=== PATIENT | female | born 1965 | race African-American/Black ===

== ENCOUNTER 2019-02-24 09:25 | Inpatient (IN) | payer OTHER ==
[2019-02-24 10:25] VITALS: BMI 37.9
--- NOTE | 2019-02-24 11:09 | HP ---
COWS - Scale Resting Pulse: 0= [place] 80 or Below Sweatin= Chills/Flushing Restless Observation: 0= Sits Still Pupil Size: 0= Normal to Room Light Bone or Joint Aches: 1= Mild Discomfort Runny Nose/ Eye Tearin= Constantly Teary/Runny GI Upset > 30mins: 0= None Tremor Observation: 0= None Yawning Observation: 1= 1-2x During Session Anxiety or Irritability: 2=Irritable/Anxious Goose Flesh Skin: 0=Smooth Skin COWS Score: 9 CIWA Score - Admission Criteria OASAS Guidelines: Admission for Medically Managed Detox: Requires at least one of the followin. CIWA greater than 12 2. Seizures within the past 24 hours 3. Delirium tremens within the past 24 hours 4. Hallucinations within the past 24 hours 5. Acute intervention needed for co occurring medical disorder 6. Acute intervention needed for co occurring psychiatric disorder 7. Severe withdrawal that cannot be handled at a lower level of care (continued vomiting, continued diarrhea, abnormal vital signs) requiring intravenous medication and/or fluids 8. Admission ROS [facility] Allergies/Adverse Reactions: Allergies Allergy/AdvReac Type Severity Reaction Status Date / Time Sulfa (Sulfonamide Allergy Verified 02/24/19 10:09 Antibiotics) History of Present Illness: pt here requesting detox from heroin use , claims 2.5 bags /day x 15 years , never in detox , was in [facility] 3 years ago MDD 60 mg " a long time ago " , on Suboxone 3 years ago , stopped going , relapsed , latest use today , denies OD , denies IVDU . States tried ambulatory detox 1 year ago , non- opioid detox , felt ok until completed then relapsed " I had no energy " . reports she was afraid to detox at [facility] now " I live alone " . cocaine : not daily " once in a blue " tobacco : 8 cigs/day etoh : not daily pMHX : pneumonia w/ PE November 2018 , on [place] , HLD , GERD PSHX : denies PSych : denies SHX : working in a public school. Exam Limitations: No Limitations - Ebola screening Have you traveled outside of the country in the last 21 days: No (N) Have you had contact with anyone from an Ebola affected area: No Do you have a fever: No - Review of Systems Constitutional: No Symptoms Reported EENT: reports: Tearing, Nose Congestion Respiratory: reports: No Symptoms reported Cardiac: reports: No Symptoms Reported GI: reports: Constipated : reports: No Symptoms Reported Musculoskeletal: reports: See HPI, Muscle Pain Integumentary: reports: No Symptoms Reported Neuro: reports: No Symptoms reported Endocrine: reports: See HPI (per pt borderline DM) Psychiatric: reports: Orientated x3, Agitated Patient History - Smoking Cessation Smoking history: Current every day smoker Have you smoked in the past 12 months: Yes Hx Chewing Tobacco Use: No Initiated information on smoking cessation: No - Substances abused Heroin Substance route: Inhalation Frequency: Daily Amount used: 2 BAGS Age of first use: 36 Date of last use: 02/24/19 Cocaine Substance route: Inhalation Frequency: 1-3 times last 30 days Family Disease History - Family Disease History Family History: Denies Admission Physical Exam BHS - Vital Signs Vital Signs: Vital Signs - 24 hr 02/24/19 10:20 Temperature 97.8 F Pulse Rate 65 Respiratory 18 Rate Blood Pressure 139/91 - Physical General Appearance: Yes: No Apparent Distress, Appropriately Dressed HEENTM: Yes: Hearing grossly Normal, Normocephalic, Normal Voice, Nasal Congestion, Rhinorrhea, Other (teary eyes) Respiratory: Yes: Lungs Clear, Normal Breath Sounds, No Respiratory Distress, No Accessory Muscle Use Neck: Yes: No masses,lesions,Nodules, Trachea in good position Cardiology: Yes: Regular Rhythm, Regular Rate, S1, S2 Abdominal: Yes: Non Tender, Soft, Protuberent Musculoskeletal: Yes: Gait Steady Extremities: Yes: Normal Range of Motion, Non-Tender Neurological: Yes: Fully Oriented, Alert, Motor Strength 5/5, Normal Mood/Affect Integumentary: Yes: Warm - Diagnostic (1) Cocaine abuse, episodic use Current Visit: Yes Status: Acute (2) Nicotine dependence Current Visit: Yes Status: Acute (3) Opioid use disorder Current Visit: Yes Status: Acute Breathalyzer - Breathalyzer Breathalyzer: 0 Urine Drug Screen - Test Device Lot number: [id number] Expiration date: 11/26/20 - Control Is test valid?: Yes - Results Drug screen NEGATIVE: No Urine drug screen results: TERE-Cocaine, FEN-Fentanyl, MOP-Opiates Inpatient Rehab Admission - Rehab Decision to Admit Inpatient rehab admission?: No
[2019-02-24] MEDS ORDERED: ACETAMINOPHEN 325 MG TABLET (FP) PO PRN ×2 (11:23)
[2019-02-24] MEDS ORDERED: MAGNESIUM HYDROX 2400MG/30ML ORAL SUSPENSION 30 ML CUP PO PRN (11:23)
[2019-02-24] MEDS ORDERED: hydrOXYzine PAMOATE 25 MG CAPSULE (FP) PO PRN (11:23)
[2019-02-24] MEDS ORDERED: MAG HYDROX/AL HYDROX/SIMETH 30 ML UNIT-DOSE CUP PO PRN (11:23)
[2019-02-24] MEDS ORDERED: ALBUTEROL SO4 8 GM HFA INHALER IH PRN (11:23)
[2019-02-24] MEDS ORDERED: MELATONIN 5 MG TABLETS PO PRN (11:23)
[2019-02-24] MEDS ORDERED: NICOTINE POLACRILEX 2 MG GUM BUC PRN (11:23)
[2019-02-24] MEDS ORDERED: BISMUTH SUBSALICYLATE 524 MG/30 ML UD PO PRN (11:23)
[2019-02-24] MEDS ORDERED: MENTHOL/PHENOL 1 EACH UD MM PRN (11:23)
[2019-02-24] MEDS ORDERED: MAGNESIUM CITRATE 300 ML BOTTLE PO PRN (11:23)
[2019-02-24] MEDS ORDERED: cloNIDine HCL 0.1 MG TABLET PO PRN (11:30)
[2019-02-24] MEDS ORDERED: METHADONE HCL 10 MG TABLET (FOR DETOX USE ONLY) PO ONE (12:00)
--- NOTE | 2019-02-24 12:32 | PN ---
S Progress Note Note: change admission lab work to today due to phlebotomy is available at this time
[2019-02-24 14:33] LABS: HEMOGLOBIN 13.5 GM/dL (10.7-15.3); MCH 27.5 pg (25.7-33.7); MCHC 32.2 g/dl (32.0-36.0); MEAN CELL VOLUME 85.5 fl (80-96); PLATELET COUNT 316 K/MM3 (134-434); RBC 4.91 M/mm3 (3.60-5.2); RDW 13.6 % (11.6-15.6); WHITE BLOOD COUNT 7.6 K/mm3 (4.0-10.0)
[2019-02-24 14:38] LABS: ALBUMIN 3.7 g/dl (3.4-5.0); BILIRUBIN,TOTAL 0.7 mg/dL (0.2-1); BLOOD UREA NITROGEN 11.4 mg/dL (7-18); CALCIUM 9.6 mg/dL (8.5-10.1); CREATININE 0.8 mg/dL (0.55-1.3); POTASSIUM 3.8 mmol/L (3.5-5.1); TOT PROT 7.5 g/dl (6.4-8.2)
--- NOTE | 2019-02-24 15:30 | EKG ---
Test Reason : Blood Pressure : / mmHG Vent. Rate : 051 BPM Atrial Rate : 051 BPM P-R Int : 144 ms QRS Dur : 096 ms QT Int : 492 ms P-R-T Axes : 049 024 001 degrees QTc Int : 453 ms POOR DATA QUALITY, INTERPRETATION MAY BE ADVERSELY AFFECTED SINUS BRADYCARDIA OTHERWISE NORMAL ECG NO PREVIOUS ECGS AVAILABLE Confirmed by MARIO ORLANDO MD ([id number]) on 02/24/2019 3:30:28 PM Referred By: Confirmed By:MARIO ORLANDO MD
[2019-02-24] MEDS ORDERED: BUDESONIDE/FORMETEROL FUMARATE 80/4.5 mcg INHALER IH SCH (22:00)
[2019-02-24] MEDS ORDERED: THIAMINE HCL 100 MG TABLET (FP) PO SCH (22:00)
[2019-02-25] MEDS ORDERED: ALBUTEROL SO4 2.5/IPRATROPIUM 0.5 INH SOL 3 ML VIAL.NEB. NEB PRN (02:31)
[2019-02-25] MEDS ORDERED: ALBUTEROL SO4 2.5/IPRATROPIUM 0.5 INH SOL 3 ML VIAL.NEB. NEB ONE (02:34)
[2019-02-25 06:32] VITALS: BP 114/72; PULSE 58; TEMP 97.1
[2019-02-25] MEDS ORDERED: glipiZIDE-XL 5 MG TAB.ER.24 PO SCH (07:00)
--- NOTE | 2019-02-25 08:20 | PN ---
BHS COWS - Scale Resting Pulse: 0= [place] 80 or Below Sweatin= Chills/Flushing Restless Observation: 1= Difficult to Sit Still Pupil Size: 1= Pupils >than Normal Bone or Joint Aches: 1= Mild Discomfort Runny Nose/ Eye Tearin= Runny Nose/Eyes GI Upset > 30mins: 2= Nausea/Diarrhea Tremor Observation of Outstretched Hands: 2= Slight Tremor Visible Yawning Observation: 1= 1-2x During Session Anxiety or Irritability: 2=Irritable/Anxious Goose Flesh Skin: 0=Smooth Skin COWS Score: 13 BHS Progress Note (SOAP) Subjective: alert,irritable,anxious,interrupted sleep,pain in the body and back Objective: 02/25/19 08:19 Vital Signs Temperature 97.1 F L 02/25/19 06:31 Pulse Rate 58 L 02/25/19 06:31 Respiratory Rate 18 02/25/19 06:31 Blood Pressure 114/72 02/25/19 06:31 O2 Sat by Pulse Oximetry (%) Laboratory Last Values WBC 7.6 K/mm3 (4.0-10.0) 02/24/19 13:20 RBC 4.91 M/mm3 (3.60-5.2) 02/24/19 13:20 Hgb 13.5 GM/dL (10.7-15.3) 02/24/19 13:20 Hct 42.0 % (32.4-45.2) 02/24/19 13:20 MCV 85.5 fl (80-96) 02/24/19 13:20 MCH 27.5 pg (25.7-33.7) 02/24/19 13:20 MCHC 32.2 g/dl (32.0-36.0) 02/24/19 13:20 RDW 13.6 % (11.6-15.6) 02/24/19 13:20 Plt Count 316 K/MM3 (134-434) 02/24/19 13:20 MPV 10.0 fl (7.5-11.1) 02/24/19 13:20 Sodium 139 mmol/L (136-145) 02/24/19 13:20 Potassium 3.8 mmol/L (3.5-5.1) 02/24/19 13:20 Chloride 105 mmol/L (98-107) 02/24/19 13:20 Carbon Dioxide 28 mmol/L (21-32) 02/24/19 13:20 Anion Gap 6 MMOL/L (8-16) L 02/24/19 13:20 BUN 11.4 mg/dL (7-18) 02/24/19 13:20 Creatinine 0.8 mg/dL (0.55-1.3) 02/24/19 13:20 Est GFR (CKD-EPI)AfAm 98.24 02/24/19 13:20 Est GFR (CKD-EPI)NonAf 84.76 02/24/19 13:20 POC Glucometer 125 UNITS (80-120) 02/24/19 16:28 Random Glucose 85 mg/dL (74-106) 02/24/19 13:20 Calcium 9.6 mg/dL (8.5-10.1) 02/24/19 13:20 Total Bilirubin 0.7 mg/dL (0.2-1) 02/24/19 13:20 AST 13 U/L (15-37) L 02/24/19 13:20 ALT 16 U/L (13-61) 02/24/19 13:20 Alkaline Phosphatase 110 U/L (45-117) 02/24/19 13:20 Total Protein 7.5 g/dl (6.4-8.2) 02/24/19 13:20 Albumin 3.7 g/dl (3.4-5.0) 02/24/19 13:20 RPR Titer Nonreactive (NONREACTIVE) 02/24/19 13:20 Assessment: 02/25/19 08:20 withdrawal sings and symptom Plan: continue detox methadone regimen,bgm monitoring
--- NOTE | 2019-02-25 08:33 | PN ---
[facility] Progress Note Note: patient did not want to complete treatment,all attempts to convince patient to stay with no avail,signed release ama, high risks of relapsing explained,patient understood,sign AMA
--- NOTE | 2019-02-25 08:37 | DS ---
[facility] Detox Discharge Summary Admission Date: 02/24/19 Discharge Date: 02/25/19 - History Present History: Cocaine Dependence, Opioid Dependence Additional Comments: patient signed release ama,has all medications at home Pertinent Past History: type 2 dm asthma history of pulmonary embolism - Physical Exam Results Vital Signs: Vital Signs Temperature 97.1 F L 02/25/19 06:31 Pulse Rate 58 L 02/25/19 06:31 Respiratory Rate 18 02/25/19 06:31 Blood Pressure 114/72 02/25/19 06:31 O2 Sat by Pulse Oximetry (%) Pertinent Admission Physical Exam Findings: withdrawal signs and symptom Vital Signs Temperature 97.1 F L 02/25/19 06:31 Pulse Rate 58 L 02/25/19 06:31 Respiratory Rate 18 02/25/19 06:31 Blood Pressure 114/72 02/25/19 06:31 O2 Sat by Pulse Oximetry (%) Laboratory Last Values WBC 7.6 K/mm3 (4.0-10.0) 02/24/19 13:20 RBC 4.91 M/mm3 (3.60-5.2) 02/24/19 13:20 Hgb 13.5 GM/dL (10.7-15.3) 02/24/19 13:20 Hct 42.0 % (32.4-45.2) 02/24/19 13:20 MCV 85.5 fl (80-96) 02/24/19 13:20 MCH 27.5 pg (25.7-33.7) 02/24/19 13:20 MCHC 32.2 g/dl (32.0-36.0) 02/24/19 13:20 RDW 13.6 % (11.6-15.6) 02/24/19 13:20 Plt Count 316 K/MM3 (134-434) 02/24/19 13:20 MPV 10.0 fl (7.5-11.1) 02/24/19 13:20 Sodium 139 mmol/L (136-145) 02/24/19 13:20 Potassium 3.8 mmol/L (3.5-5.1) 02/24/19 13:20 Chloride 105 mmol/L (98-107) 02/24/19 13:20 Carbon Dioxide 28 mmol/L (21-32) 02/24/19 13:20 Anion Gap 6 MMOL/L (8-16) L 02/24/19 13:20 BUN 11.4 mg/dL (7-18) 02/24/19 13:20 Creatinine 0.8 mg/dL (0.55-1.3) 02/24/19 13:20 Est GFR (CKD-EPI)AfAm 98.24 02/24/19 13:20 Est GFR (CKD-EPI)NonAf 84.76 02/24/19 13:20 POC Glucometer 125 UNITS (80-120) 02/24/19 16:28 Random Glucose 85 mg/dL (74-106) 02/24/19 13:20 Calcium 9.6 mg/dL (8.5-10.1) 02/24/19 13:20 Total Bilirubin 0.7 mg/dL (0.2-1) 02/24/19 13:20 AST 13 U/L (15-37) L 02/24/19 13:20 ALT 16 U/L (13-61) 02/24/19 13:20 Alkaline Phosphatase 110 U/L (45-117) 02/24/19 13:20 Total Protein 7.5 g/dl (6.4-8.2) 02/24/19 13:20 Albumin 3.7 g/dl (3.4-5.0) 02/24/19 13:20 RPR Titer Nonreactive (NONREACTIVE) 02/24/19 13:20 - Medication Discharge Medications: Ambulatory Orders Albuterol Sulfate Inhaler - 2 puff PO Q4HWA PRN 02/24/19 Apixaban [Eliquis] 1 tab PO DAILY 02/24/19 Dexlansoprazole [Dexilant] 30 mg PO DAILY 02/24/19 Fluticasone/Salmeterol [Advair Hfa 230-21 Mcg Inhaler] 1 inhaler PO DAILY Glipizide [Glipizide ER] 1 tab PO DAILY 02/24/19 - Diagnosis (1) Opioid dependence with withdrawal Current Visit: Yes Status: Acute (2) Cocaine abuse, episodic use Current Visit: Yes Status: Acute (3) Nicotine dependence Current Visit: Yes Status: Acute (4) Asthma Current Visit: Yes Status: Acute (5) DM2 (diabetes mellitus, type 2) Current Visit: Yes Status: Acute (6) History of pulmonary embolism Current Visit: Yes Status: Acute - AMA Did Patient Leave Against Medical Advice: Yes
[2019-02-25] MEDS ORDERED: PANTOPRAZOLE 20 MG TABLET (FP) PO SCH (10:00)
[2019-02-25] MEDS ORDERED: PRENATAL VITAMINS W/ FOLIC ACID TABLET (FP) PO SCH (10:00)
[2019-02-25] MEDS ORDERED: APIXABAN 5 MG TABLET PO SCH (10:00)
[2019-02-25] MEDS ORDERED: METHADONE HCL 5 MG TABLET (FOR DETOX USE ONLY) PO ONE (10:00)
[2019-02-26] MEDS ORDERED: METHADONE HCL 10 MG TABLET (FOR DETOX USE ONLY) PO ONE (10:00)
[2019-02-27] MEDS ORDERED: METHADONE HCL 5 MG TABLET (FOR DETOX USE ONLY) PO ONE (06:00)
== END 2019-02-25 09:00 | disposition left against medical advice (07) | DRG 770 ==
LOC: YASAS 09:25 → Y3N 11:51
PROVIDERS: ADMIT Surgery; ATTEND Surgery
PROC: HZ2ZZZZ Detoxification Services for Substance Abuse Treatment (ICD-10-PCS; principal; 2019-02-24)
DX: F11.23 Opioid dependence with withdrawal (principal); F14.10 Cocaine abuse, uncomplicated; F17.210 Nicotine dependence, cigarettes, uncomplicated; E11.9 Type 2 diabetes mellitus without complications; Z79.84 Long term (current) use of oral hypoglycemic drugs; J45.909 Unspecified asthma, uncomplicated; Z86.711 Personal history of pulmonary embolism; Z79.01 Long term (current) use of anticoagulants
CPT/HCPCS: 36415; 80053; 81025; 82962; 85027; 86593; 93005; 93010; 94640; J0735